=== PATIENT | female | born 1970 | race Caucasian/White ===

== ENCOUNTER → 2017-09-02 | Outpatient (CLI) | payer BC | LOC: LAB 13:39 | PROVIDERS: ATTEND Internal Medicine Nephrology | DX: N03.2 Chronic nephritic syndrome with diffuse membranous glomerulonephritis (principal) | CPT/HCPCS: 36415; 82040; 82310; 82374; 82435; 82565; 82947; 83735; 84100; 84132; 84295; 84520 ==